=== PATIENT | male | born 1955 | race African-American/Black ===

== ENCOUNTER 2017-02-27 00:07 | Emergency (ER) | payer SELFPAY ==
[~2017-02-27] VITALS: Ht 182.9 cm; Wt 76.0 kg
[2017-02-27 00:44] VITALS: Ht 182.9 cm; Wt 76.0 kg
[2017-02-28] MEDS ORDERED: TAMS-14 PO (06:18)
== END 2017-02-27 04:55 | disposition left against medical advice (07) ==
LOC: E/R 00:07
DX: Z53.21 Procedure and treatment not carried out due to patient leaving prior to being seen by health care provider (principal)

== ENCOUNTER 2017-02-28 03:55 | Emergency (ER) | payer SELFPAY ==
[~2017-02-28] VITALS: Ht 182.9 cm; Wt 68.2 kg
[2017-02-28 04:02] VITALS: Ht 182.9 cm; Wt 68.2 kg
[2017-02-28] MEDS ORDERED: TAMS-14 PO (06:18)
--- NOTE | 2017-02-28 06:20 | ERD ---
ER Documentation Chief Complaint Chief Complaint BIBA [id number], urine cath pulled out HPI 61-year-old male presents for pain and inability to urinate. He has indwelling Yoder catheter secondary to prostate neoplasm and is undergoing urological care currently. States that he was taking his pants off and the catheter came down a little. Since then he has had trouble urinating and has suprapubic pressure and pain. ROS All systems reviewed and are negative except as per history of present illness. Medications Home Meds Active Scripts Tamsulosin Hcl* (Flomax*) 0.4 Mg Cap.er.24h, 0.4 MG PO BID, #60 CAP 2 Refills Prov:TENISHA CASTRO DO 02/28/17 Allergies Allergies: Coded Allergies: aspirin (Verified Allergy, Unknown, 02/27/17) PMhx/Soc Medical and Surgical Hx: pt denies Surgical Hx History of Surgery: No Anesthesia Reaction: No Hx Neurological Disorder: No Hx Respiratory Disorders: No Hx Cardiac Disorders: No Hx Psychiatric Problems: Yes (PTSD (service connected)) Hx Miscellaneous Medical Probl: Yes (Psoriasis, Prostate CA) Hx Alcohol Use: No (denies) Hx Substance Use: No (denies) Hx Tobacco Use: Yes (denies) Smoking Status: Current every day smoker Physical Exam Vitals Vital Signs Date Time Temp Pulse Resp B/P Pulse Ox O2 Delivery O2 Flow Rate FiO2 02/28/17 05:41 72 17 127/104 100 Room Air 02/28/17 04:40 98.7 65 14 154/89 100 Room Air 02/28/17 04:02 98.7 95 17 148/93 100 Physical Exam Const: [] Mild distress, appears uncomfortable Head: Atraumatic Abd: Soft, marketed suprapubic fullness with mild surrounding tenderness, non distended. Normal bowel sounds Yoder catheter in place with no penile or testicular abnormalities Skin: No petechiae or rashes Back: No midline or flank tenderness Ext: No cyanosis, or edema Neur: Awake and alert 3, no focal deficits Psych: Normal Mood and Affect Procedures/MDM Dislodged Yoder catheter with balloon time wearing her urethra. Balloon was deflated Yoder catheter was taken after which the patient had marked hematuria. Bladder was irrigated to clear with no continued bleeding. New Yoder catheter was placed with a leg bag. Patient request Flomax. He is going to see his urologist very soon. I am going to discharge him with the Flomax. His pain was improved after Yoder catheter exchange. He does not want a urinalysis currently as he is never had any urinary tract infection. I am going to discharge him with instructions to follow-up in 2-3 days per Departure Diagnosis: Primary Impression: Pelvic pain Additional Impressions: Urinary retention Hematuria Complication of Yoder catheter Condition: Stable Patient Instructions: Yoder Catheter, Care, Urinary Retention, Male Additional Instructions: Call your primary care doctor TOMORROW for an appointment during the next 2-3 days.See the doctor sooner or return here if your condition worsens before your appointment time. TENISHA CASTRO DO Feb 28, 2017 06:20
[2017-02-28 08:34] VITALS: BP 133/75; PULSE 73; RESP 19; TEMP 98.2
== END 2017-02-28 08:35 | disposition home or self-care (01) ==
LOC: E/R 03:55
DX: R10.2 Pelvic and perineal pain (principal); R40.2252 Coma scale, best verbal response, oriented, at arrival to emergency department; R33.9 Retention of urine, unspecified; R31.9 Hematuria, unspecified; T83.098A Other mechanical complication of other urinary catheter, initial encounter; F17.210 Nicotine dependence, cigarettes, uncomplicated; R40.2142 Coma scale, eyes open, spontaneous, at arrival to emergency department; R40.2362 Coma scale, best motor response, obeys commands, at arrival to emergency department; Y73.8 Miscellaneous gastroenterology and urology devices associated with adverse incidents, not elsewhere classified; Z85.46 Personal history of malignant neoplasm of prostate